=== PATIENT | female | born 2000 | race Caucasian/White ===

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

== ENCOUNTER 2022-03-15 12:18 | Emergency (ER) | payer OTHER ==
[~2022-03-15] VITALS: Ht 165.1 cm; Wt 59.0 kg
[~2022-03-15 12:18] MED LIST changes: +IBUPROFEN400 MG PO
== END 2022-03-15 15:07 | disposition home or self-care (01) ==
LOC: ER 12:18 → EMR PED 12:23
DX: S93.402A Sprain of unspecified ligament of left ankle, initial encounter (principal); Y93.73 Activity, racquet and hand sports; Y93.89 Activity, other specified; Y92.9 Unspecified place or not applicable